=== PATIENT | male | born 1955 | race Caucasian/White ===

== ENCOUNTER 2017-06-30 17:41 | Inpatient (IN) | payer BC ==
[~2017-06-30] VITALS: Ht 177.8 cm; Wt 130.1 kg
[2017-06-30] MEDS ORDERED: ipratropium/albuterol 3ml nebule NEB ONE (17:55)
[2017-06-30] MEDS ORDERED: methylPREDNISolone sod succ 125mg/2ml vial IV ONE (17:55)
[2017-06-30] MEDS ORDERED: albuterol 2.5 MG/3 ML nebule NEB ONE ×2 (17:55→19:10)
[2017-06-30 18:09] LABS: BASOPHILS % (AUTO) 0.1 % (0-1); EOSINOPHILS # (AUTO) 2.2 X10'3 (0-0.9); EOSINOPHILS % (AUTO) 16.3 % (0-6); HEMATOCRIT 48.2 % (42.0-52.0); HEMOGLOBIN 16.3 g/dl (14.0-17.9); LYMPHOCYTES # (AUTO) 2.4 X10'3 (1.1-4.8); LYMPHOCYTES % (AUTO) 17.5 % (21-51); MEAN CORPUSCULAR HEMOGLOBIN 31.2 PG (27.0-31.0); MEAN CORPUSCULAR HGB CONC 33.8 % (33.0-36.5); MEAN CORPUSCULAR VOLUME 92.1 FL (78-98); MEAN PLATELET VOLUME 7.8 FL (7.4-10.4); MONOCYTES # (AUTO) 0.8 X10'3 (0-0.9); MONOCYTES % (AUTO) 6.1 % (2-12); NEUTROPHILS # (AUTO) 8.3 X10'3 (1.8-7.7); PLATELET COUNT 285 X10'3 (140-440); RED BLOOD COUNT 5.23 X10'6 (4.70-6.10); RED CELL DISTRIBUTION WIDTH 13.4 % (11.5-14.5); WHITE BLOOD COUNT 13.8 X10'3 (4.5-11.0)
[2017-06-30 18:26] LABS: ALANINE AMINOTRANSFERASE 35 U/L (12-78); ALBUMIN 4.2 G/DL (3.4-5.0); ALBUMIN/GLOBULIN RATIO 1.1 (1.1-1.5); ALKALINE PHOSPHATASE 51 IU/L (46-116); ANION GAP 10 (8-16); ASPARTATE AMINO TRANSFERASE 37 U/L (10-37); BILIRUBIN,TOTAL 0.4 MG/DL (0.1-1.0); BLOOD UREA NITROGEN 9 MG/DL (7-18); BUN/CREATININE RATIO 7.8 (5.4-32.0); CALCIUM 9.2 MG/DL (8.5-10.1); CHLORIDE 104 MMOL/L (99-107); CREATININE 1.16 MG/DL (0.60-1.10); GLUCOSE 134 MG/DL (70-104); POTASSIUM 3.8 MMOL/L (3.5-5.1); SODIUM 140 MMOL/L (135-145); TOTAL CARBON DIOXIDE 25.7 MMOL/L (24-32); TOTAL PROTEIN 7.9 G/DL (6.4-8.2); eGFR 64 ML/MIN
[2017-06-30] MEDS ORDERED: levoFLOXACIN-Levaquin 500mg/D5 100 ML IV ONE (18:40)
[2017-06-30] MEDS ORDERED: mag hydrox/Alum hydrox/simeth 30ml oral suspension PO PRN (19:40)
[2017-06-30] MEDS ORDERED: ondansetron/PF 4mg/2ml inj IV PRN (19:40)
[2017-06-30] MEDS ORDERED: magnesium hydroxide 30ml (MOM) UD suspension PO PRN (19:40)
[2017-06-30] MEDS ORDERED: acetaminophen 325mg tablet PO PRN ×2 (19:40)
[2017-06-30] MEDS ORDERED: glucagon, human recombinant 1mg kit SUBCUT PRN (20:25)
[2017-06-30] MEDS ORDERED: insulin Lispro (HumaLOG) vial - multi-dose SQ SCH (20:25)
[2017-06-30] MEDS ORDERED: MESSAGE TO PHARMACY PO ONE (20:25)
[2017-06-30] MEDS ORDERED: dextrose 50%-water 50ml dispensing syringe IV PRN ×2 (20:25)
[2017-06-30] MEDS ORDERED: dextrose ORAL solution 15 GM/59 ML bottle PO PRN ×2 (20:25)
[2017-06-30] MEDS: methylPREDNISolone sod succ 125mg/2ml vial IV SCH (20:26)
[2017-06-30] MEDS: Insulin Detemir pen SQ SCH (21:00)
[2017-06-30] MEDS ORDERED: LISI10TA4 PO (21:23)
[2017-06-30] MEDS ORDERED: METF10002 PO (21:24)
[2017-06-30] MEDS ORDERED: ALFU10TA PO (21:26)
[2017-06-30] MEDS ORDERED: GLUC-131 PO (21:26)
[2017-06-30] MEDS ORDERED: FISH12002 PO (21:26)
[2017-06-30] MEDS ORDERED: ATOR10TA70 PO (21:27)
[2017-06-30] MEDS ORDERED: MULT-1142 (21:29)
[2017-06-30] MEDS ORDERED: ASPI-611 PO (21:30)
[2017-06-30] MEDS ORDERED: FINA5TAB11 PO (21:30)
[2017-06-30 22:00] VITALS: BP 142/83
[2017-07-01] VITALS: BP 142/83
[2017-07-01] MEDS ORDERED: SYN0.088T PO (01:17)
[2017-07-01] MEDS: methylPREDNISolone sod succ 125mg/2ml vial IV SCH ×4 (01:24→20:41)
[2017-07-01] MEDS ORDERED: ALBU18HF2 INH (01:25)
[2017-07-01] MEDS ORDERED: temazepam 15mg capsule PO ONE (01:35)
[2017-07-01 04:00] VITALS: BP 138/84
[2017-07-01 05:40] LABS: ALBUMIN 3.9 G/DL (3.4-5.0); ANION GAP 9 (8-16); BLOOD UREA NITROGEN 15 MG/DL (7-18); BUN/CREATININE RATIO 14.3 (5.4-32.0); CALCIUM 9.4 MG/DL (8.5-10.1); CHLORIDE 104 MMOL/L (99-107); CREATININE 1.05 MG/DL (0.60-1.10); GLUCOSE 189 MG/DL (70-104); POTASSIUM 4.5 MMOL/L (3.5-5.1); SODIUM 139 MMOL/L (135-145); TOTAL CARBON DIOXIDE 25.9 MMOL/L (24-32); eGFR 72 ML/MIN
[2017-07-01 05:56] LABS: BASOPHILS % (AUTO) 0 % (0-1); EOSINOPHILS # (AUTO) 0.3 X10'3 (0-0.9); EOSINOPHILS % (AUTO) 2.5 % (0-6); HEMATOCRIT 46.7 % (42.0-52.0); HEMOGLOBIN 15.6 g/dl (14.0-17.9); LYMPHOCYTES % (AUTO) 9.9 % (21-51); MEAN CORPUSCULAR HGB CONC 33.4 % (33.0-36.5); MEAN CORPUSCULAR VOLUME 92.7 FL (78-98); MEAN PLATELET VOLUME 8.5 FL (7.4-10.4); MONOCYTES # (AUTO) 0.1 X10'3 (0-0.9); MONOCYTES % (AUTO) 0.9 % (2-12); NEUTROPHILS % (AUTO) 86.7 % (42-75); PLATELET COUNT 251 X10'3 (140-440); RED BLOOD COUNT 5.04 X10'6 (4.70-6.10); RED CELL DISTRIBUTION WIDTH 13.8 % (11.5-14.5); WHITE BLOOD COUNT 10.4 X10'3 (4.5-11.0)
[2017-07-01 07:00] VITALS: BP 119/67
[2017-07-01] MEDS: levoFLOXACIN-Levaquin 750MG/D5 150 ML IV SCH (08:00)
[2017-07-01] MEDS ORDERED: alfuzosin 10MG TAB.SR.24H PO SCH (08:00)
[2017-07-01] MEDS ORDERED: enoxaparin 30mg/0.3ml syringe SUBCUT SCH (08:00)
[2017-07-01] MEDS: lisinopril 10 MG tablet PO SCH (08:01)
[2017-07-01] MEDS: ipratropium/albuterol 3ml nebule NEB PRN ×3 (08:21→20:26)
[2017-07-01] MEDS: enoxaparin 40mg/0.4ml syringe SUBCUT SCH (09:39)
[2017-07-01 11:00] VITALS: BP 137/76
[2017-07-01] MEDS ORDERED: guaiFENesin/DM 10ml UD oral syrup PO PRN (15:20)
[2017-07-01] MEDS: guaiFENesin 200 MG/10 ML oral syrup UD cup PO PRN (17:07)
[2017-07-01 20:00] VITALS: BP 128/75
[2017-07-01] MEDS: aspirin 81mg tab.chew PO SCH (20:42)
[2017-07-01] MEDS ORDERED: finasteride 5mg tablet PO SCH (21:00)
[2017-07-01] MEDS: Insulin Detemir pen SQ SCH (21:00)
[2017-07-01] MEDS ORDERED: tamsulosin 0.4mg capsule PO SCH (21:00)
[2017-07-01] MEDS ORDERED: atorvastatin 10mg tablet PO SCH (21:00)
[2017-07-02] VITALS: BP_SYST 128; BP_SYST 141; BP_DIAS 75; BP_DIAS 78
[2017-07-02] MEDS: guaiFENesin 200 MG/10 ML oral syrup UD cup PO PRN ×2 (02:29→15:07)
[2017-07-02] MEDS: methylPREDNISolone sod succ 125mg/2ml vial IV SCH ×3 (02:29→14:50)
[2017-07-02 04:27] LABS: BASOPHILS % (AUTO) 0.1 % (0-1); EOSINOPHILS % (AUTO) 0.2 % (0-6); HEMATOCRIT 43.8 % (42.0-52.0); HEMOGLOBIN 14.8 g/dl (14.0-17.9); LYMPHOCYTES # (AUTO) 1.5 X10'3 (1.1-4.8); LYMPHOCYTES % (AUTO) 7.8 % (21-51); MEAN CORPUSCULAR HEMOGLOBIN 31.4 PG (27.0-31.0); MEAN CORPUSCULAR HGB CONC 33.9 % (33.0-36.5); MEAN CORPUSCULAR VOLUME 92.7 FL (78-98); MEAN PLATELET VOLUME 8.3 FL (7.4-10.4); MONOCYTES # (AUTO) 0.6 X10'3 (0-0.9); NEUTROPHILS # (AUTO) 16.6 X10'3 (1.8-7.7); NEUTROPHILS % (AUTO) 88.9 % (42-75); PLATELET COUNT 241 X10'3 (140-440); RED BLOOD COUNT 4.72 X10'6 (4.70-6.10); RED CELL DISTRIBUTION WIDTH 13.7 % (11.5-14.5); WHITE BLOOD COUNT 18.7 X10'3 (4.5-11.0)
[2017-07-02 04:45] LABS: ALBUMIN 3.6 G/DL (3.4-5.0); ANION GAP 10 (8-16); BLOOD UREA NITROGEN 23 MG/DL (7-18); BUN/CREATININE RATIO 18.5 (5.4-32.0); CALCIUM 9.1 MG/DL (8.5-10.1); CHLORIDE 103 MMOL/L (99-107); CREATININE 1.24 MG/DL (0.60-1.10); GLUCOSE 180 MG/DL (70-104); POTASSIUM 4.4 MMOL/L (3.5-5.1); SODIUM 139 MMOL/L (135-145); TOTAL CARBON DIOXIDE 26.2 MMOL/L (24-32); eGFR 59 ML/MIN
[2017-07-02 07:00] VITALS: BP 137/85
[2017-07-02] MEDS ORDERED: levoTHYROXINE 88mcg tablet PO SCH (07:00)
[2017-07-02] MEDS: lisinopril 10 MG tablet PO SCH (07:06)
[2017-07-02] MEDS: aspirin 81mg tab.chew PO SCH (07:07)
[2017-07-02] MEDS: enoxaparin 40mg/0.4ml syringe SUBCUT SCH (07:07)
[2017-07-02] MEDS: levoFLOXACIN-Levaquin 750MG/D5 150 ML IV SCH (07:07)
[2017-07-02 11:00] VITALS: BP 110/60
[2017-07-02] MEDS ORDERED: PRED10TA23 PO (13:32)
[2017-07-02] MEDS ORDERED: LEVO500T2 PO (13:33)
== END 2017-07-02 15:33 | disposition home or self-care (01) | DRG 190 ==
LOC: ER 17:42 → ED HOLD 19:37 → SUR 3N 21:55
PROVIDERS: ADMIT Internal Medicine; ATTEND Legal Medicine
DX: J44.0 Chronic obstructive pulmonary disease with (acute) lower respiratory infection (principal); J96.01 Acute respiratory failure with hypoxia; J18.1 Lobar pneumonia, unspecified organism; Z68.41 Body mass index [BMI] 40.0-44.9, adult; J44.1 Chronic obstructive pulmonary disease with (acute) exacerbation; E03.9 Hypothyroidism, unspecified; E11.9 Type 2 diabetes mellitus without complications; E78.5 Hyperlipidemia, unspecified; G89.29 Other chronic pain; M54.9 Dorsalgia, unspecified; I10 Essential (primary) hypertension; Z87.442 Personal history of urinary calculi; Z88.0 Allergy status to penicillin; Z79.01 Long term (current) use of anticoagulants; Z79.899 Other long term (current) drug therapy; Z79.82 Long term (current) use of aspirin; Z87.891 Personal history of nicotine dependence; Z79.84 Long term (current) use of oral hypoglycemic drugs; Z79.4 Long term (current) use of insulin
CPT/HCPCS: 36415; 71046; 74176; 80048; 80053; 82948; 83036; 83605; 83880; 85025; 87040; 87070; 87502; 87503; 94640; 94760; 96365; 96375; 99285; J1650; J1956; J2270; J2930; J7030

== ENCOUNTER 2017-09-06 03:00 | Emergency (ER) | payer BC ==
[~2017-09-06] VITALS: Ht 177.8 cm; Wt 121.0 kg
[~2017-09-06 03:00] MED LIST: ALBU18HF2 INH; ALFU10TA PO; ASPI-611 PO; ATOR10TA70 PO; FINA5TAB11 PO; FISH12002 PO; GLUC-131 PO; LISI10TA4 PO; METF10002 PO; MULT-1142; SYN0.088T PO
[2017-09-06] MEDS ORDERED: LORA0.5T PO (03:10)
[2017-09-06] MEDS ORDERED: SULF-18 (03:12)
[2017-09-06] MEDS ORDERED: methylPREDNISolone sod succ 125mg/2ml vial IM ONE (03:25)
[2017-09-06] MEDS ORDERED: albuterol 2.5 MG/3 ML nebule CONTNEB PRN (03:25)
[2017-09-06] MEDS ORDERED: ipratropium 0.5 MG/2.5ML nebule IH ONE (03:25)
[2017-09-06] MEDS ORDERED: TIOT4MIS5 INH (03:47)
[2017-09-06] MEDS ORDERED: PRED20TA PO (03:47)
[2017-09-06 04:46] VITALS: BP 132/80
== END 2017-09-06 04:50 | disposition home or self-care (01) ==
LOC: ER 03:01
DX: J44.1 Chronic obstructive pulmonary disease with (acute) exacerbation (principal); Z88.0 Allergy status to penicillin; Z79.82 Long term (current) use of aspirin; Z79.84 Long term (current) use of oral hypoglycemic drugs; Z79.899 Other long term (current) drug therapy
CPT/HCPCS: 71045; 82948; 94644; 94760; 96372; 99285; J2930; 94640

== ENCOUNTER 2018-02-03 06:16 | Inpatient (IN) | payer BC ==
[~2018-02-03] VITALS: Ht 177.8 cm; Wt 140.0 kg
[~2018-02-03 06:16] MED LIST changes: -FINA5TAB11 PO; +LORA0.5T PO; -METF10002 PO; +METF10004 PO; +SULF-18; +TIOT4MIS5 INH
[2018-02-03] MEDS ORDERED: normal saline 1000ML IV soln IVB ONE (06:45)
[2018-02-03] MEDS ORDERED: methylPREDNISolone sod succ 125mg/2ml vial IV ONE (06:45)
[2018-02-03] MEDS ORDERED: ipratropium/albuterol 3ml nebule NEB ONE (06:45)
[2018-02-03] MEDS ORDERED: albuterol 2.5 MG/3 ML nebule NEB ONE (06:45)
[2018-02-03 07:03] LABS: BASOPHILS % (AUTO) 0.3 % (0-1); EOSINOPHILS # (AUTO) 1.2 X10'3 (0-0.9); EOSINOPHILS % (AUTO) 10.6 % (0-6); HEMATOCRIT 45.7 % (42.0-52.0); HEMOGLOBIN 15.6 g/dl (14.0-17.9); LYMPHOCYTES # (AUTO) 1.7 X10'3 (1.1-4.8); LYMPHOCYTES % (AUTO) 15.3 % (21-51); MEAN CORPUSCULAR HEMOGLOBIN 31.3 PG (27.0-31.0); MEAN CORPUSCULAR HGB CONC 34.1 % (33.0-36.5); MEAN CORPUSCULAR VOLUME 91.7 FL (78-98); MONOCYTES # (AUTO) 0.7 X10'3 (0-0.9); MONOCYTES % (AUTO) 5.9 % (2-12); NEUTROPHILS # (AUTO) 7.6 X10'3 (1.8-7.7); NEUTROPHILS % (AUTO) 67.9 % (42-75); PLATELET COUNT 205 X10'3 (140-440); RED BLOOD COUNT 4.99 X10'6 (4.70-6.10); RED CELL DISTRIBUTION WIDTH 13.4 % (11.5-14.5); WHITE BLOOD COUNT 11.1 X10'3 (4.5-11.0)
[2018-02-03 07:16] LABS: ALANINE AMINOTRANSFERASE 19 U/L (12-78); ALBUMIN 3.8 G/DL (3.4-5.0); ALBUMIN/GLOBULIN RATIO 1.2 (1.1-1.5); ALKALINE PHOSPHATASE 36 IU/L (46-116); ANION GAP 10 (8-16); ASPARTATE AMINO TRANSFERASE 23 U/L (10-37); BILIRUBIN,TOTAL 0.4 MG/DL (0.1-1.0); BLOOD UREA NITROGEN 9 MG/DL (7-18); BUN/CREATININE RATIO 7.8 (5.4-32.0); CHLORIDE 105 MMOL/L (99-107); CREATININE 1.16 MG/DL (0.60-1.10); GLUCOSE 147 MG/DL (70-104); POTASSIUM 3.7 MMOL/L (3.5-5.1); SODIUM 138 MMOL/L (135-145); TOTAL CARBON DIOXIDE 23.3 MMOL/L (24-32); eGFR 64 ML/MIN
[2018-02-03] MEDS ORDERED: albuterol 2.5 MG/3 ML nebule CONTNEB PRN (08:20)
[2018-02-03] MEDS ORDERED: SILD25TA PO (09:15)
[2018-02-03] MEDS ORDERED: HYDR120S7 PO (09:15)
[2018-02-03] MEDS ORDERED: HYDROcodone/acetaminophen 10/325mg tab PO ONE (10:10)
[2018-02-03] MEDS ORDERED: magnesium Cl slow-release 64mg tablet PO PRN (11:00)
[2018-02-03] MEDS ORDERED: magnesium 1gm/100ml D5W IVPB 100 ML IV PRN (11:00)
[2018-02-03] MEDS ORDERED: MESSAGE TO PHARMACY PO ONE (11:00)
[2018-02-03] MEDS ORDERED: magnesium 4gm in 100ml NS 100 ML IV PRN (11:00)
[2018-02-03] MEDS ORDERED: potassium Cl 20 mEq SR tablet PO PRN ×2 (11:00)
[2018-02-03] MEDS ORDERED: acetaminophen 325mg tablet PO PRN (11:00)
[2018-02-03] MEDS ORDERED: potassium Cl 40MEQ/NS 500ml 500 ML IV PRN ×2 (11:00)
[2018-02-03] MEDS ORDERED: LORazepam 0.5 MG tablet PO PRN (11:30)
[2018-02-03] MEDS: normal saline 1000ml 1,000 ML IV SCH (11:38)
[2018-02-03] MEDS ORDERED: albuterol 2.5 MG/3 ML nebule NEB PRN (12:00)
[2018-02-03 14:20] VITALS: BP 146/75
[2018-02-03] MEDS ORDERED: ibuprofen 200mg tablet PO PRN (16:30)
[2018-02-03 19:00] VITALS: BP 131/65
[2018-02-03] MEDS: HYDROCODONE BIT PO SCH (20:00)
[2018-02-03] MEDS: [UNRECOGNIZED DRUG - OTHER] PO SCH (20:00)
[2018-02-03] MEDS: albuterol 2.5 MG/3 ML nebule NEB SCH (20:08)
[2018-02-03] MEDS: atorvastatin 10mg tablet PO SCH (20:38)
[2018-02-03] MEDS: methylPREDNISolone sod succ/PF 40mg inj. IV SCH (20:38)
[2018-02-03] MEDS: heparin, porcine 5000 units/ml vial SQ SCH (20:38)
[2018-02-04] MEDS: albuterol 2.5 MG/3 ML nebule NEB SCH ×7 (00:26→23:42)
[2018-02-04 03:00] VITALS: BP_SYST 108; BP_SYST 110; BP_SYST 129; BP_DIAS 64; BP_DIAS 73; BP_DIAS 75
[2018-02-04 05:16] LABS: BASOPHILS % (AUTO) 0.3 % (0-1); EOSINOPHILS # (AUTO) 0.1 X10'3 (0-0.9); EOSINOPHILS % (AUTO) 0.8 % (0-6); HEMATOCRIT 42.6 % (42.0-52.0); HEMOGLOBIN 14.6 g/dl (14.0-17.9); LYMPHOCYTES # (AUTO) 1.3 X10'3 (1.1-4.8); LYMPHOCYTES % (AUTO) 9.3 % (21-51); MEAN CORPUSCULAR HEMOGLOBIN 31.7 PG (27.0-31.0); MEAN CORPUSCULAR HGB CONC 34.2 % (33.0-36.5); MEAN CORPUSCULAR VOLUME 92.8 FL (78-98); MEAN PLATELET VOLUME 8.7 FL (7.4-10.4); MONOCYTES # (AUTO) 0.4 X10'3 (0-0.9); MONOCYTES % (AUTO) 3.1 % (2-12); NEUTROPHILS # (AUTO) 12.1 X10'3 (1.8-7.7); NEUTROPHILS % (AUTO) 86.5 % (42-75); PLATELET COUNT 194 X10'3 (140-440); RED BLOOD COUNT 4.59 X10'6 (4.70-6.10); RED CELL DISTRIBUTION WIDTH 13.5 % (11.5-14.5)
[2018-02-04 05:59] LABS: ALBUMIN 3.6 G/DL (3.4-5.0); ANION GAP 13 (8-16); BLOOD UREA NITROGEN 14 MG/DL (7-18); BUN/CREATININE RATIO 12.7 (5.4-32.0); CALCIUM 9.1 MG/DL (8.5-10.1); CHLORIDE 104 MMOL/L (99-107); GLUCOSE 173 MG/DL (70-104); MAGNESIUM 1.6 MG/DL (1.5-2.4); POTASSIUM 3.7 MMOL/L (3.5-5.1); SODIUM 139 MMOL/L (135-145); TOTAL CARBON DIOXIDE 22.2 MMOL/L (24-32); eGFR 68 ML/MIN
[2018-02-04 07:00] VITALS: BP 125/61
[2018-02-04] MEDS ORDERED: MESSAGE TO PHARMACY PO ONE (07:45)
[2018-02-04] MEDS ORDERED: dextrose 50%-water 50ml dispensing syringe IV PRN ×2 (07:45)
[2018-02-04] MEDS ORDERED: dextrose ORAL solution 15 GM/59 ML bottle PO PRN ×2 (07:45)
[2018-02-04] MEDS ORDERED: insulin Lispro (HumaLOG) vial - multi-dose SQ SCH (07:45)
[2018-02-04] MEDS ORDERED: glucagon, human recombinant 1mg kit SUBCUT PRN (07:45)
[2018-02-04] MEDS: [UNRECOGNIZED DRUG - OTHER] PO SCH ×2 (08:00→20:00)
[2018-02-04] MEDS ORDERED: non-formulary drug (Gluc/Chon-Msm#2/C/D3/Mang/Born (Glucosamin-Chondroitin-Msm Tab) 1 EACH PO SCH (08:00)
[2018-02-04] MEDS: HYDROCODONE BIT PO SCH ×2 (08:00→20:00)
[2018-02-04] MEDS ORDERED: non-formulary drug (Fish Oil/Borage/Flax/Om3,6,9#1 (Omega 3-6-9 1,200 mg Softgel) 1 CAP) PO SCH (08:00)
[2018-02-04] MEDS: K and/or MAG REPLACEMENT MC SCH (08:00)
[2018-02-04] MEDS: methylPREDNISolone sod succ/PF 40mg inj. IV SCH ×2 (08:01→20:33)
[2018-02-04] MEDS: famotidine 20mg tablet PO SCH (08:02)
[2018-02-04] MEDS: lisinopril 10 MG tablet PO SCH (08:02)
[2018-02-04] MEDS: levoTHYROXINE 88mcg tablet PO SCH (08:02)
[2018-02-04] MEDS: aspirin 81mg tab.chew PO SCH (08:02)
[2018-02-04] MEDS: heparin, porcine 5000 units/ml vial SQ SCH ×2 (08:03→20:33)
[2018-02-04] MEDS: ipratropium 0.5 MG/2.5ML nebule NEB SCH ×3 (09:12→20:00)
[2018-02-04 11:00] VITALS: BP 111/55
[2018-02-04 20:00] VITALS: BP 128/64
[2018-02-04] MEDS: atorvastatin 10mg tablet PO SCH (20:33)
[2018-02-04 20:55] VITALS: BP_SYST 126; BP_SYST 130; BP_SYST 145; BP_DIAS 66; BP_DIAS 71; BP_DIAS 75
[2018-02-04] MEDS ORDERED: insulin glargine (Lantus) pen - multi-dose SQ SCH (21:00)
[2018-02-04] MEDS: benzocaine/menthol oral lozeng 1 EACH BOX MM PRN (21:30)
[2018-02-04 23:00] VITALS: BP 130/66
[2018-02-05] MEDS: ipratropium 0.5 MG/2.5ML nebule NEB SCH ×3 (03:06→14:42)
[2018-02-05] MEDS: albuterol 2.5 MG/3 ML nebule NEB SCH ×4 (03:06→14:42)
[2018-02-05] MEDS: benzocaine/menthol oral lozeng 1 EACH BOX MM PRN ×2 (04:29→08:26)
[2018-02-05 05:56] LABS: BASOPHILS % (AUTO) 0.1 % (0-1); EOSINOPHILS # (AUTO) 0.1 X10'3 (0-0.9); EOSINOPHILS % (AUTO) 0.8 % (0-6); HEMATOCRIT 41.5 % (42.0-52.0); HEMOGLOBIN 14.1 g/dl (14.0-17.9); LYMPHOCYTES # (AUTO) 1.2 X10'3 (1.1-4.8); LYMPHOCYTES % (AUTO) 9.4 % (21-51); MEAN CORPUSCULAR HEMOGLOBIN 31.4 PG (27.0-31.0); MEAN CORPUSCULAR HGB CONC 33.9 % (33.0-36.5); MEAN CORPUSCULAR VOLUME 92.7 FL (78-98); MONOCYTES # (AUTO) 0.6 X10'3 (0-0.9); MONOCYTES % (AUTO) 4.4 % (2-12); NEUTROPHILS # (AUTO) 11.3 X10'3 (1.8-7.7); NEUTROPHILS % (AUTO) 85.3 % (42-75); PLATELET COUNT 207 X10'3 (140-440); RED BLOOD COUNT 4.47 X10'6 (4.70-6.10); RED CELL DISTRIBUTION WIDTH 14.2 % (11.5-14.5); WHITE BLOOD COUNT 13.3 X10'3 (4.5-11.0)
[2018-02-05 06:23] LABS: ALBUMIN 3.6 G/DL (3.4-5.0); ANION GAP 11 (8-16); BLOOD UREA NITROGEN 16 MG/DL (7-18); BUN/CREATININE RATIO 12.8 (5.4-32.0); CALCIUM 8.7 MG/DL (8.5-10.1); CHLORIDE 104 MMOL/L (99-107); CHOL/HDL RATIO 1.8 (0.00-4.99); CHOLESTEROL 106 MG/DL (0-200); CREATININE 1.25 MG/DL (0.60-1.10); GLUCOSE 163 MG/DL (70-104); HDL CHOLESTEROL 60 MG/DL (35-60); LDL CHOLESTEROL 41 MG/DL (50-100); MAGNESIUM 1.9 MG/DL (1.5-2.4); POTASSIUM 3.8 MMOL/L (3.5-5.1); SODIUM 139 MMOL/L (135-145); TRIGLYCERIDES 81 MG/DL (20-135); eGFR 58 ML/MIN
[2018-02-05 07:17] VITALS: BP 122/72
[2018-02-05 08:00] VITALS: BP_SYST 131; BP_SYST 145; BP_DIAS 77; BP_DIAS 79
[2018-02-05] MEDS: HYDROCODONE BIT PO SCH (08:00)
[2018-02-05] MEDS: [UNRECOGNIZED DRUG - OTHER] PO SCH (08:00)
[2018-02-05] MEDS: K and/or MAG REPLACEMENT MC SCH (08:00)
[2018-02-05] MEDS: methylPREDNISolone sod succ/PF 40mg inj. IV SCH (08:14)
[2018-02-05] MEDS: aspirin 81mg tab.chew PO SCH (08:14)
[2018-02-05] MEDS: heparin, porcine 5000 units/ml vial SQ SCH (08:14)
[2018-02-05] MEDS: famotidine 20mg tablet PO SCH (08:14)
[2018-02-05] MEDS: lisinopril 10 MG tablet PO SCH (08:14)
[2018-02-05] MEDS: levoTHYROXINE 88mcg tablet PO SCH (08:15)
[2018-02-05] MEDS: normal saline 1000ml 1,000 ML IV SCH (11:00)
[2018-02-05 11:46] VITALS: BP 131/77
[2018-02-05 11:47] VITALS: BP 131/77
[2018-02-05] MEDS ORDERED: COMP1EAC86 INH (15:47)
[2018-02-05] MEDS ORDERED: FAMO20TA8 PO (15:53)
[2018-02-05] MEDS ORDERED: PRED10TA23 PO (15:53)
[2018-02-05] MEDS ORDERED: ALBU2.5V7 NEB (15:53)
== END 2018-02-05 18:50 | disposition home or self-care (01) | DRG 189 ==
LOC: ER 06:16 → ED HOLD 11:00 → SUR 3N 14:07
PROVIDERS: ADMIT Internal Medicine; ATTEND Internal Medicine
DX: J96.01 Acute respiratory failure with hypoxia (principal); J44.1 Chronic obstructive pulmonary disease with (acute) exacerbation; Z68.41 Body mass index [BMI] 40.0-44.9, adult; E03.9 Hypothyroidism, unspecified; E11.9 Type 2 diabetes mellitus without complications; E78.5 Hyperlipidemia, unspecified; F41.9 Anxiety disorder, unspecified; G47.30 Sleep apnea, unspecified; I11.0 Hypertensive heart disease with heart failure; I50.9 Heart failure, unspecified; Z88.0 Allergy status to penicillin; Z87.01 Personal history of pneumonia (recurrent); Z87.891 Personal history of nicotine dependence; Z79.899 Other long term (current) drug therapy; Z79.82 Long term (current) use of aspirin; Z79.84 Long term (current) use of oral hypoglycemic drugs
CPT/HCPCS: 36415; 71045; 80048; 80053; 80061; 82948; 83036; 83735; 83880; 84443; 85025; 87070; 94640; 94760; 99285; A6222; A6258; A6449; J1644; J1815; J2920; J2930; J7030